=== PATIENT | male | born 1940 | race Caucasian/White ===

== ENCOUNTER → 2018-06-20 | Outpatient (CLI) | payer OTHER ==
[~2018-06-20] MED LIST: ACCU CHEK COMP IN; ASPIRIN EC81 M1 PO; B-12500 MCG; CLEOCIN HCL300 MG PO; FISH OIL 1,0001 EAC5; FOLIC ACID0.4 MG; GLUCOSAMINE1000 MG; HUMALOG100 UNIT/1; LANTUS SUBQ; LORAZEPAM 1 MG T1 M1 PO; NORCO 5-325 TA1 EACH PO; TAMSULOSIN HCL0.4 M1 PO; VITAMIN D35000 UNI1 PO; ZESTORETIC 20-1 EAC3 PO; ZINC10 MG
[2018-06-20 17:55] LABS: HEMATOCRIT 33.1 % (42.0-52.0); MCH 30.3 pg (26.0-34.0); MCHC 33.1 g/dL (28.0-37.0); MCV 91.7 fL (80.0-100.0); MPV 8.1 fl. (7.2-11.1); RBC 3.61 mil/uL (4.50-6.00); RDW-CV 13.3 % (10.5-14.5); WBC 6.8 thou/uL (4.0-11.0)
[2018-06-20 18:11] LABS: ALBUMIN 3.7 g/dL (3.4-5.0); CALCIUM 9.4 mg/dL (8.5-10.1); CREATININE 1.3 mg/dL (0.6-1.3); POTASSIUM 4.6 mmol/L (3.5-5.1); TOTAL BILIRUBIN 0.4 mg/dL (<0.1-1.0); TOTAL PROTEIN 7.2 g/dL (6.4-8.2)
== END ==
LOC: M.CT 17:00
PROVIDERS: Internal Medicine
DX: S22.42XA Multiple fractures of ribs, left side, initial encounter for closed fracture (principal); N20.0 Calculus of kidney; I70.0 Atherosclerosis of aorta; N40.0 Benign prostatic hyperplasia without lower urinary tract symptoms; I70.208 Unspecified atherosclerosis of native arteries of extremities, other extremity; M47.816 Spondylosis without myelopathy or radiculopathy, lumbar region; M48.07 Spinal stenosis, lumbosacral region; E11.9 Type 2 diabetes mellitus without complications; I10 Essential (primary) hypertension; E11.40 Type 2 diabetes mellitus with diabetic neuropathy, unspecified; J90 Pleural effusion, not elsewhere classified; J98.11 Atelectasis; Z79.4 Long term (current) use of insulin; W19.XXXA Unspecified fall, initial encounter; Y93.89 Activity, other specified; Y92.89 Other specified places as the place of occurrence of the external cause; Y99.8 Other external cause status

== ENCOUNTER → 2018-07-03 | Outpatient (CLI) | payer OTHER | LOC: M.RAD 16:27 | DX: J90 Pleural effusion, not elsewhere classified (principal); J84.10 Pulmonary fibrosis, unspecified; E11.3419 Type 2 diabetes mellitus with severe nonproliferative diabetic retinopathy with macular edema, unspecified eye; E11.65 Type 2 diabetes mellitus with hyperglycemia; R07.1 Chest pain on breathing; I10 Essential (primary) hypertension ==

== ENCOUNTER → 2018-07-05 | Outpatient (CLI) | payer OTHER | LOC: M.ULTRA 08:24 | DX: J90 Pleural effusion, not elsewhere classified (principal) ==